=== PATIENT | male | born 1955 ===

== ENCOUNTER 2020-11-08 13:47 | Emergency (ER) | payer MEDICARE ==
[~2020-11-08] VITALS: Ht 172.7 cm; Wt 91.2 kg
[2020-11-08 14:07] VITALS: BP 111/69
== END 2020-11-08 18:55 | disposition left against medical advice (07) ==
LOC: ER 13:48
DX: R20.0 Anesthesia of skin (principal); Z53.21 Procedure and treatment not carried out due to patient leaving prior to being seen by health care provider
CPT/HCPCS: 70450; 93005; 99284